=== PATIENT | female | born 1955 | race Caucasian/White ===

== ENCOUNTER 2017-06-04 04:38 | Emergency (ER) | payer BC ==
[2017-06-04 04:56] VITALS: O2SAT 98
[2017-06-04] MEDS ORDERED: Dexamethasone 4 mg/1 ml IM STA (05:09)
--- NOTE | 2017-06-04 05:14 | C.PDOC ---
History Of Present Illness 62 year old female presents to the ED c/o diffuse hives that started today in the afternoon after eating lunch. Patient states symptoms have been worsening, patient took Benadryl 75 mg PO 30 minutes [employer]. Patient denies SOB, swelling, lesions, weakness, numbness, nausea, vomit. Time Seen by Provider: 06/04/17 04:55 Chief Complaint (Nursing): Allergic Reaction History Per: Patient History/Exam Limitations: no limitations Onset/Duration Of Symptoms: Hrs Current Symptoms Are (Timing): Still Present Possible Cause: Unknown Associated Symptoms: Skin Rash Home/EMS Treatment: Benadryl Recent travel outside of the [place] States: No Additional History Per: Patient Past Medical History Reviewed: Historical Data, Nursing Documentation, Vital Signs Vital Signs: Last Vital Signs Temp 97.9 F 06/04/17 04:49 Pulse 91 H 06/04/17 04:49 Resp 18 06/04/17 04:49 BP 107/70 06/04/17 04:49 Pulse Ox 98 06/04/17 05:17 - Medical History PMH: Asthma, Migraine, Pneumonia Denies: Chronic Kidney Disease Surgical History: Endoscopy Family History: States: Unknown Family Hx - Social History Hx Tobacco Use: Yes Hx Alcohol Use: Yes Hx Substance Use: No - Immunization History Hx Tetanus Toxoid Vaccination: No Hx Influenza Vaccination: No Hx Pneumococcal Vaccination: No Review Of Systems Constitutional: Negative for: Fever, Chills ENT: Negative for: Mouth Swelling, Throat Swelling Cardiovascular: Negative for: Chest Pain Respiratory: Negative for: Cough, Shortness of Breath Gastrointestinal: Negative for: Nausea, Vomiting, Abdominal Pain Skin: Positive for: Rash Neurological: Negative for: Weakness, Numbness Physical Exam - Physical Exam Appears: Non-toxic, No Acute Distress Skin: Normal Color, Warm, Dry, Rash (diffuse urticaria ) Head: Atraumatic, Normacephalic Eye(s): bilateral: Normal Inspection Nose: No Discharge Oral Mucosa: Moist Tongue: No Swelling Lips: No Swelling Throat: Normal, No Erythema, No Exudate Neck: Normal ROM, Supple Respiratory: Normal Breath Sounds, No Rales, No Rhonchi, No Wheezing Neurological/Psych: Oriented x3 Gait: Steady ED Course And Treatment O2 Sat by Pulse Oximetry: 98 (On RA) Pulse Ox Interpretation: Normal Progress Note: Plan: - Decadron 10 mg IM. - Pepcid 20 mg PO. Pt reports improvement after meds, in no resp distress, improved urticaria. Pt is stable for discharge home with relative Reassessment Condition: Improved Disposition Counseled Patient/Family Regarding: Diagnosis, Need For Followup - Disposition Referrals: 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 - Scribe Statement The provider has reviewed the documentation as recorded by the Scribe Narendra Patel All medical record entries made by the Scribe were at my direction and personally dictated by me. I have reviewed the chart and agree that the record accurately reflects my personal performance of the history, physical exam, medical decision making, and the department course for this patient. I have also personally directed, reviewed, and agree with the discharge instructions and disposition.
[2017-06-04 06:08] VITALS: BP 142/82; PULSE 67; RESP 20; TEMP 98.8
== END 2017-06-04 06:15 | disposition home or self-care (01) ==
LOC: C.ER 04:38
DX: L50.0 Allergic urticaria (principal)
CPT/HCPCS: 96372; 99283; J1100